=== PATIENT | female | born 1960 | race African-American/Black ===

== ENCOUNTER 2017-06-01 10:22 | Emergency (ER) | payer OTHER ==
[~2017-06-01] VITALS: Ht 157.5 cm; Wt 68.0 kg
[2017-06-01 10:55] VITALS: BP 133/85
== END 2017-06-01 11:30 | disposition home or self-care (01) ==
LOC: ER 10:22
DX: M19.011 Primary osteoarthritis, right shoulder (principal); J45.909 Unspecified asthma, uncomplicated; E11.9 Type 2 diabetes mellitus without complications; I10 Essential (primary) hypertension